=== PATIENT | male | born 1945 | race African-American/Black ===

== ENCOUNTER 2018-05-30 05:48 | Day surgery (SDC) | payer MEDICARE ==
[2018-05-30] MEDS ORDERED: Cyclopentolate 1% Opth Drop 2 ML BOT ONE (06:06)
[2018-05-30] MEDS ORDERED: Phenylephrine 2.5% Ophth Soln 5 ML BOT ONE (06:06)
[2018-05-30] MEDS ORDERED: Fluorouracil 100 MG, Enoxaparin Sodium 25 MG, EPINEPHrine 0.3 MG in Ophthalmic Irrigati... IVPB SCH (06:10)
[2018-05-30] MEDS ORDERED: Fentanyl 100 MCG/2 ML VIAL ONE (06:17)
[2018-05-30] MEDS ORDERED: Triamcinolone 40 MG/ML VIAL ONE (14:13)
[2018-05-30] MEDS ORDERED: Lidocaine 4% PF 5 ML AMP ONE (14:13)
[2018-05-30] MEDS ORDERED: CEFAZOLIN 1 GM VIAL ONE (14:13)
[2018-05-30] MEDS ORDERED: Indocyanine Green 25 MG/10 ML VIAL ONE (14:13)
[2018-05-30] MEDS ORDERED: Lidocaine 1% PF 5 ML VIAL ONE ×2 (14:13)
[2018-05-30] MEDS ORDERED: Bupivacaine 0.75% 10 ML AMP ONE (14:13)
[2018-05-30] MEDS ORDERED: Maxitrol 0.1% Opth Oint 3.5 GM TUBE ONE (14:13)
[2018-05-30] MEDS ORDERED: PROPOFOL 200 MG/20 ML VIAL ONE (14:13)
--- NOTE | 2018-05-30 14:55 | OP ---
DATE OF PROCEDURE: 05/30/2018 PREOPERATIVE DIAGNOSIS: Vitreomacular traction, macular hole, left eye. POSTOPERATIVE DIAGNOSIS: Vitreomacular traction, macular hole, left eye. PROCEDURES PERFORMED: Pars plana vitrectomy and internal limiting membrane peel, left eye. ANESTHESIA: Local with monitored anesthesia care. DESCRIPTION OF PROCEDURE: The patient was identified in the preoperative holding area. Appropriate informed consent for the planned surgical procedure on the left eye had been obtained. The patient was transported to the operative suite, where appropriate cardiopulmonary monitoring was established. Local anesthesia was obtained using retrobulbar modified [place]int lid block using 50:50 mixture of 4% lidocaine and 0.75% bupivacaine. The patient was prepped and draped in usual sterile manner for ophthalmic surgery on the left eye. Lid speculum was placed on the left eye. A 25-gauge trocar was placed through the conjunctiva and sclera superotemporally, inferotemporally, and superonasally. Infusion line was placed inferotemporally. Light pipe and vitreous cutter were inserted into the eye. Core vitrectomy was performed. Posterior hyaloid face was elevated using vacuum suction peeled across the macula. Indocyanine signing green dye was infused on the posterior pole x1, identifying the internal limiting membrane. This was elevated using membrane scraper and peeled across the macula using end-gripping forceps. Indirect ophthalmoscope was used to exam the retina 360 degrees. No holes, breaks, or tears were identified. Prophylactic laser was placed behind the sclerotomy sites. 28% sulfur hexafluoride gas was infused into the eye. Trocars were removed. The eye was noted to retain pressure well. Retrobulbar Kenalog and subconjunctival Ancef were placed. Atropine antibiotic ointment was placed and the eye was patched and shielded. The patient was taken to the postop recovery unit in good condition, having suffered no immediate perioperative complications. The patient was instructed to keep the patch and shield on, avoid lifting and bending. Followup appointment with Dr. Townsend. Job ID: [id number]
== END 2018-05-30 08:30 | disposition home or self-care (01) ==
LOC: SDC 05:48
PROVIDERS: ATTEND Ophthalmology Retina Specialist
PROC: 08T53ZZ Resection of Left Vitreous, Percutaneous Approach (ICD-10-PCS; principal; 2018-05-30)
PROC: 08NF3ZZ Release Left Retina, Percutaneous Approach (ICD-10-PCS; 2018-05-30)
DX: H35.342 Macular cyst, hole, or pseudohole, left eye (principal); H43.822 Vitreomacular adhesion, left eye; Z79.899 Other long term (current) drug therapy; Z88.5 Allergy status to narcotic agent; Z88.8 Allergy status to other drugs, medicaments and biological substances
CPT/HCPCS: 67025; J0171; J0690; J1650; J2001; J2704; J3010; J3301; J3490; J9190

== ENCOUNTER 2020-01-23 06:42 | Outpatient (CLI) | payer MEDICARE, OTHER ==
[2020-01-23 16:40] LABS: SARS-CoV-2 MS2 Positive; SARS-CoV-2 N Gene Negative; SARS-CoV-2 S Gene Negative; SARS-CoV-2 by NAA Not Detected (NotDetected); SARS-CoV-2 orf1ab Negative
== END 2020-01-23 06:43 | disposition home or self-care (01) ==
LOC: LABBT 06:42
PROVIDERS: ATTEND Ophthalmology Retina Specialist
DX: H35.341 Macular cyst, hole, or pseudohole, right eye (principal); Z20.828 Contact with and (suspected) exposure to other viral communicable diseases
CPT/HCPCS: 87635; U0003

== ENCOUNTER 2020-01-27 06:16 | Day surgery (SDC) | payer MEDICARE ==
[2020-01-23 10:34] VITALS: BMI 31.1
[2020-01-27] MEDS ORDERED: PROPOFOL 20 ML ONE (06:33)
[2020-01-27] MEDS ORDERED: Midazolam HCl 2 mg/2 ml Vial ONE (06:33)
[2020-01-27] MEDS ORDERED: Fentanyl 100 MCG/2 ML VIAL ONE (06:33)
[2020-01-27] MEDS ORDERED: Phenylephrine 2.5% Ophth Soln 5 ML BOT ONE (06:37)
[2020-01-27] MEDS ORDERED: Cyclopentolate 1% Opth Drop 2 ML BOT ONE (06:37)
[2020-01-27] MEDS ORDERED: EPINEPHrine 0.3 MG in Ophthalmic Irrigation Solution 500 ML IRR SCH (07:00)
[2020-01-27] MEDS ORDERED: Maxitrol 0.1% Opth Oint 3.5 GM TUBE ONE (09:31)
[2020-01-27] MEDS ORDERED: CEFAZOLIN 1 GM VIAL ONE (09:31)
[2020-01-27] MEDS ORDERED: Triamcinolone 40 MG/ML VIAL ONE (09:31)
[2020-01-27] MEDS ORDERED: Bupivacaine PF 0.75% SDV 10 ML ONE (09:31)
[2020-01-27] MEDS ORDERED: Indocyanine Green 25 MG/10 ML VIAL ONE (09:31)
[2020-01-27] MEDS ORDERED: Lidocaine 1% PF 5 ML VIAL ONE (09:31)
[2020-01-27] MEDS ORDERED: Lidocaine 4% PF 5 ML AMP ONE (09:31)
--- NOTE | 2020-01-27 10:39 | OP ---
DATE OF PROCEDURE: 01/27/2020 PRINCIPAL PREOPERATIVE DIAGNOSIS: Macular hole, right eye. POSTOPERATIVE DIAGNOSIS: Macular hole, right eye. PROCEDURES PERFORMED: 1. 25-gauge pars plana vitrectomy, right eye. 2. Internal limiting membrane peel/macular hole repair, right eye. 3. 15% SF6 fill, right eye. ESTIMATED BLOOD LOSS: None. SPECIMENS REMOVED: None. COMPLICATIONS: None. ANESTHESIA: MAC with subtenon's block. DESCRIPTION OF OPERATION: The patient was identified in the preoperative holding area, where the correct eye being the right eye was marked for surgery. The patient was taken to the operating room, where MAC anesthesia was induced. The right eye was prepped and draped in the usual sterile ophthalmic fashion for surgery. A wire-clip lid speculum was placed. A standard 25-gauge pars plana vitrectomy platform was fashioned with trocars placed approximately 4 mm from the limbus. The infusion was noted to be within the vitreous cavity prior to being turned on to infusion pressure of 30 mmHg. The light pipe and microvitrector were introduced in the eye under visualization of the BIOM viewing system. A careful core vitrectomy was performed followed by induction of posterior vitreous detachment. Following completion of posterior vitreous detachment the peripheral shave vitrectomy was subsequently performed. Following vitrectomy, the ICG dye was used to stain the internal limiting membrane. Using the [place] ILM forceps, the internal limiting membrane was removed in a circumferential fashion about the fovea. The peel extended approximately 2 disk diameters in radius circumferentially. Following peeling, the microvitrector was reintroduced in the eye to remove any residual vitreous debris. A 360-degree scleral depressed exam of the periphery revealed no defects. An air-fluid exchange was performed followed by an air-gas exchange with 15% SF6. The cannulas were sequentially removed and all sclerotomies were noted to be gas tight. Subconjunctival Ancef and Kenalog were injected. The wire lid speculum was removed followed by application of TobraDex ophthalmic ointment and a light patch and shield. The patient tolerated the procedure well, and was taken to the outpatient recovery area in good condition. Job ID: [id number]
== END 2020-01-27 09:01 | disposition home or self-care (01) ==
LOC: SDC 06:16
PROVIDERS: ATTEND Ophthalmology Retina Specialist
PROC: 08T43ZZ Resection of Right Vitreous, Percutaneous Approach (ICD-10-PCS; principal; 2020-01-27)
PROC: 08NE3ZZ Release Right Retina, Percutaneous Approach (ICD-10-PCS; 2020-01-27)
DX: H35.341 Macular cyst, hole, or pseudohole, right eye (principal); Z88.5 Allergy status to narcotic agent; Z88.6 Allergy status to analgesic agent
CPT/HCPCS: 67025; J0171; J0690; J2001; J2250; J2704; J3010; J3301; J3490